=== PATIENT | male | born 1945 | race African-American/Black ===

== ENCOUNTER 2017-01-11 12:12 | Emergency (ER) | payer MEDICARE, MEDICAID ==
[2017-01-11] MEDS ORDERED: Acetaminophen 325 MG TAB ONE (12:59)
[2017-01-11 13:27] LABS: #Monocytes 0.4 thou/uL (0.11-0.59); #Neutrophils 3.2 thou/uL (1.40-6.50); %Basophils 0.2 % (0.0-1.0); %Eosinophils 0.6 % (0.0-10.0); %Lymphocytes 20.9 % (21.0-51.0); Red Blood Cell (RBC) Count 4.32 mill/uL (4.70-6.10); White Blood Cell (WBC) Count 4.6 thou/uL (4.8-10.8)
[2017-01-11 13:44] LABS: Bilirubin Negative (Negative); Blood, Urine Negative (Negative); Glucose, Urine (Dipstick) Negative (Negative); Ketone, Urine Negative (Negative)
[2017-01-11 13:45] LABS: Nitrite Negative (Negative); Protein, Urine (Dipstick) Negative (Neg-Trace); Urobilinogen 0.2 mg/dL (0.2-1.0)
[2017-01-11 13:51] LABS: ALT (SGPT) 22 U/L (8-55); AST (SGOT) 21 U/L (5-34); Alkaline Phosphatase 68 U/L (40-150); Anion Gap 13 mmol/L (10-20); BUN (Urea Nitrogen) 17 mg/dL (8.4-25.7); Bilirubin, Total 0.4 mg/dL (0.2-1.2); CK (CPK) 185 U/L (30-200); Calc. Creatinine Clearance 0 mL/min (70-130); Calcium 8.8 mg/dL (7.8-10.44); Carbon Dioxide 20 mmol/L (23-31); Chloride 114 mmol/L (98-107); Estimated GFR-MDRD 53; Globulin 3.2 g/dL (2.4-3.5); Protein, Total 6.6 g/dL (5.8-8.1)
[2017-01-11 13:53] LABS: Troponin I Less than 0.010 ng/mL (< 0.028)
== END 2017-01-11 14:50 | disposition home or self-care (01) ==
LOC: ERS 12:12
DX: R53.1 Weakness (principal); E78.5 Hyperlipidemia, unspecified; I11.0 Hypertensive heart disease with heart failure; I50.9 Heart failure, unspecified
CPT/HCPCS: 80053; 81003; 82550; 82553; 84484; 85025; 93005

== ENCOUNTER 2018-09-02 13:16 | Inpatient (IN) | payer MEDICAID, MEDICARE ==
[2018-09-02 13:45] LABS: #Eosinphils 0.1 thou/uL (0.0-0.7); #Lymphocytes 1.8 thou/uL (1.20-3.40); #Monocytes 0.4 thou/uL (0.11-0.59); #Neutrophils 3.1 thou/uL (1.40-6.50); %Basophils 0.3 % (0.0-1.0); %Eosinophils 1.3 % (0.0-10.0); %Lymphocytes 33.8 % (21.0-51.0); %Monocytes 7.5 % (0.0-10.0); %Neutrophils 57.3 % (42.0-75.0); Hemoglobin 14.3 g/dL (14.0-18.0); Mean Corpuscular HGB CONC 31.9 g/dL (32.0-36.0); Mean Corpuscular Hemoglobin 26.9 pg (27.0-31.0); Mean Corpuscular Volume 84.4 fL (78.0-98.0); Mean Platelet Volume 9.6 fL (7.4-10.4); Platelet Count 157 thou/uL (130-400); RBC Distribution Width 13.7 % (11.5-14.5); Red Blood Cell (RBC) Count 5.34 mill/uL (4.70-6.10); White Blood Cell (WBC) Count 5.5 thou/uL (4.8-10.8)
--- NOTE | 2018-09-02 13:50 | RAD ---
Portable chest: HISTORY: Chest pain COMPARISON: none FINDINGS: Lung tompkins are clear. Heart and mediastinum appear unremarkable. Vascularity is normal. Visualized osseous structures unremarkable. IMPRESSION: No acute finding
[2018-09-02 14:05] LABS: ALT (SGPT) 21 U/L (8-55); AST (SGOT) 21 U/L (5-34); Albumin 4.4 g/dL (3.4-4.8); Alkaline Phosphatase 98 U/L (40-150); Anion Gap 11 mmol/L (10-20); BUN (Urea Nitrogen) 19 mg/dL (8.4-25.7); Bilirubin, Total 0.5 mg/dL (0.2-1.2); CK (CPK) 377 U/L (30-200); Calc. Creatinine Clearance 0 mL/min (70-130); Calcium 9.8 mg/dL (7.8-10.44); Carbon Dioxide 24 mmol/L (23-31); Chloride 109 mmol/L (98-107); Estimated GFR-MDRD 58; Globulin 3.3 g/dL (2.4-3.5); Glucose 126 mg/dL (83-110); Potassium 4.2 mmol/L (3.5-5.1); Protein, Total 7.7 g/dL (5.8-8.1); Sodium 140 mmol/L (136-145)
--- NOTE | 2018-09-02 15:14 | CT ---
CT head without contrast: Multiple axial tomograms obtained through the head without IV enhancement. INDICATIONS: Mental status change. Dizziness COMPARISON: None FINDINGS: Ventricles are mildly prominent. Mild chronic ischemic white matter change. There is left basal ganglia calcification. There is surrounding density left basal ganglia which prob ably represents early calcification although subtle hemorrhage at this location cannot be excluded. Short-term follow-up exam is recommended to confirm stability. Sinuses and mastoids are well aerated. No evidence of infarct or mass effect. IMPRESSION: Ventriculomegaly appears disproportionate to the degree of atrophy. Consider NPH. Left basal ganglia calcification. Density surrounding a calcification in the left basal ganglia could represent early calcification or hemorrhage. Short-term follow-up recommended.
[2018-09-02] MEDS ORDERED: Dexamethasone 10 MG/ML VIAL ONE (15:28)
[2018-09-02] MEDS ORDERED: Ondansetron PF 4 MG/2 ML Vial ONE (15:28)
[2018-09-02] MEDS ORDERED: Meclizine HCl 25 MG TAB ONE (15:28)
[2018-09-02] MEDS ORDERED: Lorazepam 2 MG/ML VIAL ONE (15:28)
[2018-09-02] MEDS ORDERED: Diltiazem 125 MG/25 ML ONE (16:33)
[2018-09-02] MEDS ORDERED: Meclizine HCl 25 MG TAB PO PRN ×2 (17:56→20:13)
[2018-09-02] MEDS ORDERED: Ondansetron PF 4 MG/2 ML Vial IVP PRN (17:56)
[2018-09-02] MEDS ORDERED: Ondansetron ODT 4 MG TAB SL PRN (17:56)
--- NOTE | 2018-09-02 18:24 | MRI ---
EXAM: MRI Brain W WO Con PROVIDED CLINICAL HISTORY: Dizziness and vomiting. Headache. Increased density in the left basal ganglia noted on CT scan exam. COMPARISON: Noncontrast CT head on 09/02/2018. FINDINGS: There are patchy and confluent areas of increased FLAIR and T2-weighted signal intensity in the periv entricular and subcortical white matter which is nonspecific but likely reflective of moderate chronic small vessel ischemic changes. There is also increased FLAIR and and T2-weighted signal inten sity within the alysha bilaterally also likely reflective of chronic small vessel ischemic changes. There is no evidence of restricted diffusion to suggest an acute infarction. There is a vessel seen in the region of the left basal ganglia with findings most compatible with a d evelopmental venous anomaly (DVA). This is also in the region of susceptibility artifact on gradient echo images and low T1 weighted signal intensity which is related to the basal ganglia calci fication noted on the CT scan examination. There is no evidence of edema in this region to suggest evidence of hemorrhage. Findings on the CT scan examination are most likely attributable to basal isael glia calcification and possibly attributable to the associated closely adjacent developmental venous anomaly (DVA). No abnormal areas of enhancement are seen. Mild cerebral volume loss is present. There is mild prominence of the ventricular system which is out of proportion to the degree of sulcal atrophy. Findings may be related to greater central cerebral atrophy. Mild normal pressure hydrocephalus could be a possibility,, the third ventricle is not dilat ed . The septum pellucidum and third ventricle are in the midline. Small amount of fluid is seen in the posterior nasopharynx. Paranasal sinuses are clear. The orbits a nd skull base otherwise have a normal appearance. IMPRESSION: 1. No acute intracranial abnormality is demonstrated. 2. Chronic small vessel ischemic changes and cerebral volume loss. 2. Dilatation of the lateral ventricles which is out of proportion to the degree of sulcal atrophy. F indings are probably attributable to greater central cerebral atrophy as opposed to normal pressure hydrocephalus. 4. Bilateral basal ganglia calcifications as noted on CT examination and represented by blooming leslie fact on gradient echo images. Findings are asymmetrically greater on the left. 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 There are no findin gs to suggest evidence of an acute hemorrhage in this region.
[2018-09-02 18:34] VITALS: BMI 23.3
[2018-09-02] MEDS ORDERED: Acetaminophen 325 MG TAB PO PRN (20:11)
[2018-09-02] MEDS ORDERED: hydrALAZINE 20 MG/ML VIAL SLOW IVP PRN (20:22)
--- NOTE | 2018-09-02 21:02 | HP ---
PRIMARY CARE PROVIDER: None. CHIEF COMPLAINT: Woke up dizzy. HISTORY OF PRESENT ILLNESS: This is a 73-year-old male with history of heart disease, status post CABG, chronic kidney disease, dyslipidemia, hypertension, who presents to the emergency room today complaining of waking up dizzy. The patient reports feeling like the room was spinning around. He states this has happened approximately a year ago that he attributed to overheating. He denies any precipitating factors or relieving factors, denies any falls or head trauma. He also denies any chest pain, difficulty breathing, abdominal pain, fevers, or chills. Currently, the patient denies any dizziness or any difficulties. In the emergency room, the patient received Zofran 4 mg IV, Decadron 10 mg IV, Ativan 1 mg IV, meclizine 1 tablet oral, 1 L of normal saline, and hospitalist called for admission. The patient had CT abnormality with suspected NPH, underwent MRI with consultation with Neurosurgery. ALLERGIES: NO KNOWN DRUG ALLERGIES. CURRENT MEDICATIONS: Reconciled with the patient's bottles, 1. Aspirin 81 mg daily. 2. Metoprolol succinate 25 mg one-half tablet daily. 3. Pantoprazole 40 mg daily. PAST MEDICAL HISTORY: 1. Coronary artery disease, status post CABG. 2. Dyslipidemia. 3. Hypertension. 4. Chronic kidney disease by chart review. 5. 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 PAST SURGICAL HISTORY: 1. CABG x4 vessel. 2. Cholecystectomy. SOCIAL HISTORY: The patient lives alone in [place], reports his surrogate decision maker is his sister. Denies alcohol or tobacco use. FAMILY HISTORY: He denies. REVIEW OF SYSTEMS: As noted above. All remaining review of systems is negative. PHYSICAL EXAMINATION: VITAL SIGNS: Blood pressure 178/102, temperature 97.5, pulse 79, respirations 16, and sats 97% on room air. GENERAL: Awake, alert, responsive, in no apparent distress. Able to speak in full sentences. HEENT: The patient has clouding of his left cornea, and his right pupil is round. Oral mucosa is pink and moist. NECK: Supple, nontender. LYMPHATICS: No palpable cervical or supraclavicular lymphadenopathy. LUNGS: Clear to auscultation bilateral. No audible wheezing, rhonchi, or rales. HEART: Normal S1 and S2. Regular rate and rhythm. No significant murmur. ABDOMEN: Soft with present bowel sounds. Nontender, nondistended. EXTREMITIES: No clubbing, cyanosis, or edema. VASCULAR: 2+ dorsalis pedis pulses. NEUROLOGIC: No focal deficits. Strength in upper and lower extremities bilaterally is 5/5, 2+ patellar, biceps, brachioradialis reflexes. No ankle clonus. PSYCH: The patient appears tired, easily falling asleep, euthymic, and answers questions appropriately. SKIN: No visible rashes. LABORATORY DATA: Labs reviewed. CBC; 5.5, 14.3, 45, 157. Chemistry; 144.2, 109, 24, 19, 1.44, 126. Creatinine by chart review has ranged from 1.57 to 1.74 two years ago. LFTs negative. CK 377. Troponin less than 0.01. Chest x-ray is personally reviewed and negative. CT of the head shows ventriculomegaly, disproportionate to the degree of atrophy. Consider NPH, left basal ganglia calcification, density surrounding a calcification in the left basal ganglia could represent early calcification or hemorrhage with recommended short-term followup. 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 No findings to suggest acute hemorrhage in this region. EKG, personally reviewed, normal axis and sinus rhythm, abnormal R-wave progression, no ST changes, inverted, and flattened T-waves. IMPRESSION: 1. Vertigo in a patient at high risk of stroke. However, negative MRI for acute process. 2. Abnormal CT/MRI 3. Hypertension, uncontrolled, with unknown baseline. 4. History of coronary artery disease, status post coronary artery bypass graft. 5. Gastroesophageal reflux disease. 6. Chronic kidney disease, stage 3, appears stable. 7. Dyslipidemia. 8. 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 PLAN: 1. Admission to the hospital. 2. Consultation with Neurology. 3. A followup CT scan ordered by Neurosurgery, who by report were contacted from the emergency room. 4. We will manage the vertigo symptoms with p.r.n. meclizine. 5. Continuing the patient's home metoprolol and low-dose aspirin. We will order p.r.n. hydralazine for blood pressures greater than 180. The patient may require a second oral medication for management of blood pressure, which may be contributing to the vertigo symptoms. 6. Continuing his home PPI. 7. We will monitor renal function while here, check TSH in the morning 8. We will request PT and OT evaluations. 9. Deep venous thrombosis prophylaxis with pneumatic compression devices. 10. Gastrointestinal prophylaxis not indicated. 11. Code status is full. Surrogate decision maker is noted above. 12. The patient is at high risk given age, comorbidities, and current presentation. 13. Reviewed the plan of care with the patient, who demonstrates understanding. No questions or further needs at the end of evaluation. Job ID: [id number] MTDD
--- NOTE | 2018-09-02 22:26 | CON ---
DATE OF CONSULTATION: This is Shea Carey PA-C dictating a report for Del Nava MD. HISTORY OF PRESENT ILLNESS: The patient is a 73-year-old male with a past medical history of coronary artery disease with a prior bypass surgery, congestive heart failure, hypertension, hyperlipidemia, history of colon cancer and prostate cancer, who presented to the emergency department for complaints of headache and dizziness. The patient reports this morning when he got out of bed he felt dizzy. He describes this as a spinning sensation. This was associated with mild headache and some nausea and vomiting. He was brought to the emergency department by his family for further evaluation of these symptoms. A CT head was done on arrival, which is notable for hyperdensity within the left basal ganglia concerning for calcification versus acute intracranial hemorrhage. There was also noted to be slight mid ventriculomegaly with concern for NPH. The patient reports he has had similar episodes over the last year, 4 in total. He has followed up with his family doctor in the past and this has been attributed to dehydration in the past. He reports no prior CT head exam and we have nothing to compare to today. He reports he is feeling much better at this time. Denies any pain or dizziness as long as he is lying still in the bed. PAST MEDICAL HISTORY: Coronary artery disease, congestive heart failure, hypertension, hyperlipidemia, history of colon cancer and prostate cancer, GERD. PAST SURGICAL HISTORY: CABG, 4 vessel in 2010, cholecystectomy. SOCIAL HISTORY: The patient does not smoke, drink, or use any drugs. ALLERGIES: NO KNOWN DRUG ALLERGIES. FAMILY HISTORY: Noncontributory. REVIEW OF SYSTEMS: Per HPI. PHYSICAL EXAMINATION: VITAL SIGNS: BP is 168/95, pulse 61, respiration rate is 18, temperature is 97.6, patient is 98% on room air. CONSTITUTIONAL: GCS 15. A and O x4. No acute distress. HEENT: Head, normocephalic and atraumatic. Eyes, PERRLA. Extraocular movements intact. ENT: Oral mucosa is dry. NECK: Nontender to palpation. Free active range of motion. No meningismus. No nuchal rigidity. CARDIAC: Regular rate and rhythm. RESPIRATORY: Symmetric chest expansion. No evidence of dyspnea. MUSCULOSKELETAL: Free active range of motion of all extremities. No focal motor weakness. NEUROLOGIC: A and O x4. He has normal speech. No focal neurologic deficits are appreciated on my exam. ASSESSMENT/PLAN: This is a 73-year-old male who has had acute onset dizziness with headache, nausea and vomiting this morning. His CT head shows hyperdensity in the left basal ganglia region, which is concerning for calcification versus intracranial hemorrhage. He also was noted to have ventriculomegaly on the CT. At this point, patient's symptoms are improving. He will be admitted by the Medicine Service and we will monitor closely on the stroke unit with frequent neuro checks. Head of the bed should be elevated at 30 degrees and systolic blood pressure goal was less than 140. We will get an MRI of the brain with and without contrast to further characterize this suspected calcification and ventriculomegaly. I will also repeat an a.m. CT, noncontrast head CT since there is concern for possible acute intracranial hemorrhage; however, I feel that this is less likely at this point. I have discussed this plan with Dr. Nava who is in agreement. We will hold any anticoagulation. Job ID: [id number]
[2018-09-03 05:09] LABS: #Lymphocytes 0.9 thou/uL (1.20-3.40); #Monocytes 0.3 thou/uL (0.11-0.59); #Neutrophils 7.6 thou/uL (1.40-6.50); %Basophils 0.3 % (0.0-1.0); %Eosinophils 0.1 % (0.0-10.0); %Lymphocytes 10.2 % (21.0-51.0); %Monocytes 3.8 % (0.0-10.0); %Neutrophils 85.6 % (42.0-75.0); Hemoglobin 14.5 g/dL (14.0-18.0); Mean Corpuscular HGB CONC 32.1 g/dL (32.0-36.0); Mean Corpuscular Hemoglobin 27.1 pg (27.0-31.0); Mean Corpuscular Volume 84.4 fL (78.0-98.0); Mean Platelet Volume 9.8 fL (7.4-10.4); Platelet Count 175 thou/uL (130-400); RBC Distribution Width 13.5 % (11.5-14.5); Red Blood Cell (RBC) Count 5.34 mill/uL (4.70-6.10); White Blood Cell (WBC) Count 8.9 thou/uL (4.8-10.8)
[2018-09-03 05:26] LABS: Anion Gap 15 mmol/L (10-20); BUN (Urea Nitrogen) 21 mg/dL (8.4-25.7); Calc. Creatinine Clearance 49 mL/min (70-130); Calcium 9.8 mg/dL (7.8-10.44); Carbon Dioxide 22 mmol/L (23-31); Chloride 107 mmol/L (98-107); Estimated GFR-MDRD 54; Glucose 131 mg/dL (83-110); Potassium 3.9 mmol/L (3.5-5.1); Sodium 140 mmol/L (136-145)
--- NOTE | 2018-09-03 07:39 | CT ---
CT OF HEAD NONCONTRAST: INDICATION: Followup intracranial, basal ganglion hyperdensity. FINDINGS: There is persistent increased density of the left basal ganglia involving the region of the genu of t he internal capsule and the globus pallidus. The finding is morphologically stable to the comparison exam from the previous day. Faint right basal ganglia calcification is also seen. Persistence of t he enlarged ventricular system with mild periventricular hypoattenuation. IMPRESSION: Stable head CT. POS: RENEE
[2018-09-03] MEDS ORDERED: Prevnar 13-Val Conj/PF 0.5 ML SYRINGE IM ONE (09:00)
[2018-09-03] MEDS ORDERED: Aspirin 81 mg Enteric Coated Tablet PO SCH (09:00)
--- NOTE | 2018-09-03 11:05 | PRG ---
DATE OF SERVICE: 09/03/2018 The patient was seen and examined. I agree with Shea Carey's evaluation on 09/02/2018. The patient is a 73-year-old man, who was admitted for dizziness. A head CT showed a hyperdensity in the left basal ganglia and perhaps some enlarged ventricles that prompted further evaluation. He has now had 2 CT scans and an MRI scan. These reveal calcification in the left basal ganglia as well as a developmental venous abnormality. These are of no consequence not related to the current presentation and require no treatment. The patient's ventricular system seems reasonably in proportion to his degree of cerebral atrophy. IMPRESSION AND PLAN: No specific neurosurgical findings or recommendations at this time. His dizziness is unexplained based on the imaging of the brain. Job ID: [id number]
--- NOTE | 2018-09-03 12:29 | PDOC.PN ---
- Subjective Encounter Start Date: 09/03/18 Encounter Start Time: 12:27 Mr. Ramirez was seen today in follow-up of vertigo. He does not have any complaints this afternoon. He was up to walk to the bathrrom and back without difficulty. He denies feeling dizzy today. - Objective Resuscitation Status - Order Detail: 09/02/18 20:11 Resuscitation Status Routine Resuscitation Status: FULL: Full Resuscitation MAR Reviewed: Yes Vital Signs & Weight: Vital Signs (12 hours) Temp Pulse Resp BP Pulse Ox 09/03/18 12:00 98.0 F 63 16 134/78 97 09/03/18 07:58 97.3 F L 63 18 137/76 97 09/03/18 04:00 97.4 F L 77 16 127/83 96 Weight Weight 181 lb 4.8 oz I&O: 09/02/18 09/03/18 09/04/18 06:59 06:59 06:59 Intake Total 240 Output Total 200 Balance -200 240 Result Diagrams: 09/03/18 04:53 09/03/18 04:53 Phys Exam - Physical Examination HEENT: PERRLA, sclera anicteric, oral pharynx no lesions Respiratory: no wheezing, no rales, no rhonchi, clear to auscultation bilateral Cardiovascular: RRR, no significant murmur, no rub Gastrointestinal: soft, non-tender, no distention, positive bowel sounds Musculoskeletal: no edema, pulses present Dx/Plan (1) Vertigo Code(s): R42 - DIZZINESS AND GIDDINESS Status: Acute (2) Hypertension Code(s): I10 - ESSENTIAL (PRIMARY) HYPERTENSION Status: Chronic (3) Coronary artery disease Code(s): I25.10 - ATHSCL HEART DISEASE OF [place] CORONARY ARTERY W/O ANG PCTRS Status: Chronic - Plan * Dizziness- due to Vertigo- this has improved since admission * Neurosurgery work-up noted * He is stable for discharge home.
[2018-09-03 15:33] VITALS: BP 130/73; TEMP 98.1
--- NOTE | 2018-09-03 19:34 | DIS ---
DATE OF ADMISSION: 09/02/2018 DATE OF DISCHARGE: 09/03/2018 PRIMARY CARE PHYSICIAN: Currently, does not have a primary care doctor. DISCHARGE DISPOSITION: Home. PRIMARY DISCHARGE DIAGNOSES: 1. Vertigo. 2. Coronary artery disease, status post coronary artery bypass grafting. 3. Dyslipidemia. 4. Hypertension. 5. Chronic kidney disease stage 3. DISCHARGE MEDICATIONS: 1. Meclizine 25 mg q.8 as needed for dizziness. 2. Pantoprazole 40 mg daily. 3. Metoprolol 12.5 mg extended release daily. 4. Aspirin 81 mg a day. CODE STATUS: Full code. ALLERGIES: NO KNOWN DRUG ALLERGIES. PERTINENT LABORATORY DATA: The patient had a CT scan of the brain showing a ventriculomegaly. It appears disproportionate to the degree of atrophy. There was a left basal ganglia calcification. The patient also had an MRI of the brain showing no acute intracranial abnormality. There was chronic small-vessel ischemic change as well as cerebral volume loss. There is dilatation of the left ventricles which is out of proportion. The findings are probably attributable to greater central cerebral atrophy as opposed to normal-pressure hydrocephalus. There are bilateral basal ganglia calcifications as noted on CT. The patient had a repeat CT scan on 09/03, which did not show any significant change. HOSPITAL COURSE: Mr. Ramirez is a pleasant 73-year-old gentleman, who was brought to the hospital by family due to concerns for dizziness and vertigo. He was evaluated with CT scan in the emergency room in which it was noted that he had enlarged ventricles. There was some concern for possible normal pressure hydrocephalus. For this reason, he was placed in observation and Neurosurgery was consulted. This evaluation proved negative and the dizziness is attributed to vertigo. The following day, the patient's symptoms have almost completely resolved and therefore, since CT scan and MRI did not show any significant change, he is being discharged home. He will need to establish a primary care physician in the community. Job ID: [id number]
== END 2018-09-03 16:28 | disposition home or self-care (01) | DRG 149 ==
LOC: ERS 13:16 → 2SE 16:56
PROVIDERS: ADMIT Internal Medicine; ATTEND Internal Medicine
DX: R42 Dizziness and giddiness (principal); I13.0 Hypertensive heart and chronic kidney disease with heart failure and stage 1 through stage 4 chronic kidney disease, or unspecified chronic kidney disease; I25.10 Atherosclerotic heart disease of native coronary artery without angina pectoris; E78.5 Hyperlipidemia, unspecified; N18.3 Chronic kidney disease, stage 3 (moderate); I50.9 Heart failure, unspecified; K21.9 Gastro-esophageal reflux disease without esophagitis; H54.62 Unqualified visual loss, left eye, normal vision right eye; Z85.038 Personal history of other malignant neoplasm of large intestine; Z95.1 Presence of aortocoronary bypass graft; Z85.46 Personal history of malignant neoplasm of prostate; Z90.49 Acquired absence of other specified parts of digestive tract; Z79.82 Long term (current) use of aspirin; Z79.899 Other long term (current) drug therapy
CPT/HCPCS: 36415; 70450; 70553; 71045; 80048; 80053; 82550; 84443; 84484; 85025; 90471; 90670; 93005; G0009; J1100; J2060; J2405; J8499

== ENCOUNTER 2021-03-24 08:33 | Outpatient (CLI) | payer MEDICARE, MEDICAID | END 2021-03-24 08:34 | disposition home or self-care (01) | LOC: CT 08:33 | PROVIDERS: ATTEND Internal Medicine Hematology & Oncology | DX: C61 Malignant neoplasm of prostate (principal); N21.0 Calculus in bladder | CPT/HCPCS: 71260; 74177; 78306; 82565; A9503 ==